=== PATIENT | male | born 1980 | race Caucasian/White ===

== ENCOUNTER 2017-06-01 21:17 | Emergency (ER) | payer OTHER ==
[~2017-06-01] VITALS: Ht 182.9 cm; Wt 61.7 kg
[~2017-06-01 21:17] MED LIST: FLEXERIL PO; IBUPROFEN 600600 M1 PO; NOHOMEMEDICATIONS; NORCO 5-325 TA1 EACH PO; PENICILLIN V P500 MG PO; PREDNISONE 20 M20 MG PO; PROMETHAZINE-C120 ML PO; PROVENTIL HFA6.7 G1 INH
[2017-06-01 21:23] VITALS: BP 124/79
[2017-06-01] MEDS ORDERED: NAPROSYN500 MG PO (22:08)
== END 2017-06-01 22:16 | disposition home or self-care (01) ==
LOC: ER 21:17
DX: M70.22 Olecranon bursitis, left elbow (principal); F17.210 Nicotine dependence, cigarettes, uncomplicated; Y93.89 Activity, other specified

== ENCOUNTER 2020-06-08 10:25 | Emergency (ER) | payer OTHER ==
[~2020-06-08] VITALS: Ht 182.9 cm; Wt 63.5 kg
[~2020-06-08 10:25] MED LIST changes: +NAPROSYN500 MG PO
[2020-06-08 12:02] LABS: ABSOLUTE NEUTROPHILS 6.9 thou/uL (1.4-8.2); BASOPHILS 0.7 % (0.0-2.0); EOSINOPHILS 0.7 % (0.0-3.0); HEMATOCRIT 44.5 % (42.0-52.0); HEMOGLOBIN 14.7 gm/dL (14.0-18.0); LYMPHOCYTES 18.7 % (24.0-44.0); MCH 28.3 pg (26.0-34.0); MCV 85.8 fL (80.0-100.0); MONOCYTES 4.1 % (1.0-8.0); POLYS 75.8 % (36.0-66.0); RBC 5.18 mil/uL (4.50-6.00); RDW 13.9 % (10.5-14.5); WBC 9.1 thou/uL (4.0-11.0)
[2020-06-08 12:21] LABS: ANION GAP 10 mmol/L (7-16); BUN 7 mg/dL (7-18); CALCIUM 9.5 mg/dL (8.5-10.1); CHLORIDE 105 mmol/L (98-107); CO2 27 mmol/L (21-32); CREATININE 0.9 mg/dL (0.7-1.3); GLUCOSE 77 mg/dL (74-106); POTASSIUM 4.8 mmol/L (3.5-5.1); SODIUM 142 mmol/L (136-145)
[2020-06-08 12:24] LABS: MAGNESIUM 2.1 mg/dL (1.8-2.4)
[2020-06-08 12:32] LABS: ALBUMIN 4.1 g/dL (3.4-5.0); SGOT 13 U/L (15-37); SGPT 21 U/L (30-65); TOTAL BILIRUBIN 0.2 mg/dL (0.2-1.0); TOTAL PROTEIN 7.2 g/dL (6.4-8.2); TROPONIN-I <0.06 ng/mL (<0.06)
[2020-06-08 13:13] VITALS: BP 103/55
[2020-06-08 19:22] LABS: LARGE PLATELETS FEW; PLATELET COUNT 164 thou/uL (150-400); PLATELET ESTIMATE NORMAL
--- NOTE | 2020-06-09 07:08 | EKG ---
[facility] [place] [address] ELECTROCARDIOGRAM REPORT Name: NIKITA DE SANTIAGO Room #: DEP [facility]#: [id number] Admission: 06/08/20 Attend Phys: Discharge: 06/08/20 Date of : 82 Report #: [id number] THIS REPORT FOR: cc: JESSICA Oneill family physician/PCP JESSICA Oneill family physician/PCP Oleksandr Goyal MD [facility] THIS REPORT FOR: //name// [facility] ED Test Date: 2020-06-08 Test Time: 10:32:07 Pat Name: NIKITA DE SANTIAGO Department: Room: Gender: Battery Tester: [facility] : 1980 Requested By: Anabela Medel Order Number: [id number] MD: Oleksandr Goyal Measurements Intervals [place] Rate: 67 P: 87 [place]: 175 QRS: 76 QRSD: 162 T: 70 QT: 398 QTc: 420 Interpretive Statements Sinus rhythm Consider left atrial enlargement Nonspecific intraventricular conduction delay Inferolateral infarct, acute Compared to ECG 08/03/2014 19:09:44 Intraventricular conduction delay now present Incomplete right bundle-branch block no longer present Electronically Signed On 06-09-2020 7:08:34 SPECIAL EDUCATOR by Oleksandr Goyal [email or web address] <ELECTRONICALLY SIGNED> By: Oleksandr Goyal MD, [facility] 06/09/20 0708 [id number] Oleksandr Goyal MD, [facility] /EPI
== END 2020-06-08 13:25 | disposition home or self-care (01) ==
LOC: ER 10:25
PROVIDERS: Physician Assistant
DX: R00.2 Palpitations (principal); R55 Syncope and collapse; F17.210 Nicotine dependence, cigarettes, uncomplicated; J45.909 Unspecified asthma, uncomplicated